=== PATIENT | male | born 1960 | race Asian ===

== ENCOUNTER 2019-11-23 10:28 | Day surgery (SDC) | payer OTHER | END 2019-11-23 12:15 | disposition home or self-care (01) | LOC: OR 10:28 | PROC: 3E0R33Z Introduction of Anti-inflammatory into Spinal Canal, Percutaneous Approach (ICD-10-PCS; principal; 2019-11-23) | PROC: B01BYZZ Fluoroscopy of Spinal Cord using Other Contrast (ICD-10-PCS; 2019-11-23) | DX: M51.16 Intervertebral disc disorders with radiculopathy, lumbar region (principal) | CPT/HCPCS: J1020 ==

== ENCOUNTER 2019-12-21 08:34 | Day surgery (SDC) | payer OTHER | END 2019-12-21 10:51 | disposition home or self-care (01) | LOC: OR 08:34 | PROC: 3E0R33Z Introduction of Anti-inflammatory into Spinal Canal, Percutaneous Approach (ICD-10-PCS; principal; 2019-12-21) | PROC: B01BYZZ Fluoroscopy of Spinal Cord using Other Contrast (ICD-10-PCS; 2019-12-21) | DX: M51.17 Intervertebral disc disorders with radiculopathy, lumbosacral region (principal) | CPT/HCPCS: J1020 ==

== ENCOUNTER 2020-08-15 09:30 | Day surgery (SDC) | payer OTHER ==
[~2020-08-15] VITALS: Ht 30.5 cm; Wt 0.5 kg
== END 2020-08-15 10:22 | disposition home or self-care (01) ==
LOC: OR 09:30
PROC: 3E0T3BZ Introduction of Anesthetic Agent into Peripheral Nerves and Plexi, Percutaneous Approach (ICD-10-PCS; principal; 2020-08-15)
PROC: 3E0T33Z Introduction of Anti-inflammatory into Peripheral Nerves and Plexi, Percutaneous Approach (ICD-10-PCS; 2020-08-15)
DX: M47.816 Spondylosis without myelopathy or radiculopathy, lumbar region (principal)
CPT/HCPCS: J1100; J2001